=== PATIENT | female | born 1965 | race Caucasian/White ===

== ENCOUNTER 2019-08-26 10:07 | Observation (INO) | payer OTHER, SELFPAY ==
[2019-08-26] VITALS (11 sets, daily range): BP systolic 113–143; BP diastolic 72–90; PULSE 66–109; RESP 16–18; TEMP 35.8–37.1; O2SAT 94–99; BMI 30.9
--- NOTE | ~2019-08-26 | US_ITS ---
EXAMINATION: US abdomen limited DATE: 08/27/2019 16:50 INDICATION: Abnormal liver function tests. TECHNIQUE: Multiple grayscale and Doppler ultrasound images of the abdomen were obtained. COMPARISON: None FINDINGS: The visualized portions of the head and body of the pancreas are normal. There is diffuse h epatic steatosis with areas of focal sparing at the hilum. There is normal flow in main portal vein. The gallbladder is absent. The common duct is normal and measures 6 mm. IMPRESSION: 1. Diffuse hepatic steatosis. Reviewed, dictated and finalized at location A. RVISOR SHEARING
--- NOTE | ~2019-08-26 | XR_ITS ---
EXAMINATION: XR chest 1V portable DATE: 08/26/2019 10:47 INDICATION: Left chest pain. TECHNIQUE: A single frontal view of the chest was obtained. COMPARISON: Chest 2 views 08/25/2018 FINDINGS: There are lucencies in the upper lungs, consistent with emphysema. The chest demonstrates c lear lungs without pneumonia, pleural effusion, or pneumothorax. The heart size is normal. IMPRESSION: 1. Emphysema. Reviewed, dictated and finalized at location A. GE POSTER IMPRESSION: 1. Emphysema.
--- NOTE | ~2019-08-26 | CT_ITS ---
EXAMINATION: CT BRAIN W/O DATE: 08/27/2019 11:29 INDICATION: Vertigo. Dizziness. TECHNIQUE: Computed tomography (CT) of the head was performed without and with 100 cc Omnipaque 350 i ntravenous contrast. The dose-length product was 1210.67 mGy-cm. The mA was adjusted according to pat ient size. Iterative reconstruction technique was employed. COMPARISON: No prior studies for comparison. FINDINGS: Normal brain parenchymal volume for age. Normal carlos-white differentiation. No acute intrac ranial hemorrhage, infarction, mass or mass effect. No ventriculomegaly or midline shift. Midline sagittal images demonstrate a normal corpus callosum, c raniovertebral junction and sella turcica. Basilar cisterns are patent. Paranasal sinuses and mastoids are pneumatized. No depressed skull fractures. IMPRESSION: 1. No acute intracranial abnormality. Reviewed, dictated and finalized at location B. TECH
--- NOTE | 2019-08-26 10:29 | ECG_ITS ---
Measurements Intervals [place] Rate: 72 P: 62 MT: 130 QRS: 72 QRSD: 89 T: 79 QT: 402 QTc: 440 Interpretive Statements SINUS RHYTHM DELAYED PRECORDIAL R/S TRANSITION BASELINE ARTIFACT- I, II, III, AVL, AVF, V2 BORDERLINE ECG Electronically Signed On 08-26-2019 10:50:26 SENIOR ACCOUNTING MANAGER by Kalin Moore D.O.
--- NOTE | 2019-08-26 10:43 | PC.NURSE ---
report given to Kedar Koch RN
[2019-08-26 10:52] LABS: Basophils Absolute Auto 0.03 K/mm3 (0.00-0.10); Basophils Percent Auto 0.4 % (0.0-1.0); Eosinophils Absolute Auto 0.24 K/mm3 (0.02-0.50); Eosinophils Percent Auto 3.1 % (1.0-6.0); Hematocrit 48.7 % (35.0-49.0); Immature Granulocyte Absolute 0.05 K/mm3 (0.00-0.00); Immature Granulocyte Percent A 0.6 % (0.0-0.0); Lymphocytes Absolute Auto 2.36 K/mm3 (1.10-4.50); Lymphocytes Percent Auto 30.6 % (18.0-42.0); Mean Corpuscular HGB Conc 34.9 g/dL (32.0-36.0); Mean Corpuscular Hemoglobin 31.7 pg (27.0-31.0); Mean Corpuscular Volume 90.9 fL (78.0-102.0); Mean Platelet Volume 10.1 fl (9.2-11.8); Monocytes Absolute Auto 0.63 K/mm3 (0.10-0.90); Monocytes Percent Auto 8.2 % (2.0-11.0); Neutrophils Absolute Auto 4.4 K/mm3 (1.7-7.2); Neutrophils Percent Auto 57.1 % (50.0-70.0); Platelet Count Result 255 K/mm3 (150-420); Red Blood Count 5.36 M/mm3 (4.20-5.40); Red Cell Distribution Width 12.9 % (11.6-14.4); White Blood Count 7.7 K/mm3 (4.8-10.8)
[2019-08-26] MEDS: ONDANSETRON INJ 4 MG/2 ML VIAL IV PUSH ×2 (10:53→23:56)
[2019-08-26] MEDS: PANTOPRAZOLE SODIUM IV 40 MG VIAL IV PUSH ×2 (10:56→15:22)
--- NOTE | 2019-08-26 10:59 | PC.NURSE ---
PT CARE IS ASSUMED AT THIS TIME. PT STATES SHE HAS BRONCHITIS AND ACID REFLUX. WILL AWAIT RESULTS. PT WELL APPEARING AT THIS TIME.
[2019-08-26 11:10] LABS: Alanine Aminotransferase 81 U/L (14-59); Albumin Level 4.4 g/dL (3.4-5.0); Alkaline Phosphatase 122 U/L (46-116); Anion Gap 17.2 mmol/L (7-16); Aspartate Amino Transferase 38 U/L (15-37); Bilirubin,Total 0.4 mg/dL (0.00-1.00); Blood Urea Nitrogen 15 mg/dL (7-18); Calcium 9.4 mg/dL (8.5-10.1); Carbon Dioxide 23 mmol/L (21-32); Chloride 105 mmol/L (98-108); Estimated CRCL calculation 68 ml/min; Estimated Glomerular Filt Rate > 60; Glucose 101 mg/dL (70-99); Osmolality Calculated 292 mOsm/kg (285-295); Potassium 4.2 mmol/L (3.5-5.1); Sodium 141 mmol/L (136-145); Total Protein 7.8 g/dL (6.4-8.2)
[2019-08-26 11:11] LABS: Troponin I < 0.02 ng/mL (0.00-0.056)
[2019-08-26 11:23] LABS: Influenza Control Valid (Valid)
--- NOTE | 2019-08-26 11:33 | ED.CHESTPAIN ---
HPI - Chest Pain General Chief Complaint: Chest Pain Stated Complaint: Chest Pains Source: patient Mode of arrival: ambulatory History of Present Illness HPI narrative: 54 y.o. awoken at 5 AM with spinning causing it her hold on to her . This lasted about 2 minutes. About 5 minutes later she had trouble walking, was being assisted by her , when she developed a deep, intense, sharp #8/10 pain in her left chest associated with difficulty getter her breath. This lasted about 90 - 120 seconds. At that time she developed intense itching in her left palm (which lasted about 90 minutes) and fatigue - which persists. She denies shoulder, neck, arm pain. She denies diaphoresis. She has had popping but not ringing in her ears in the last few days. At 8:30 AM she again had an episode of left chest pain, this time dull, ~4/10. She has had minor SOB off and on this AM. She remains lightheaded with fatigue and nausea. When she changes position her vertigo returns for a few seconds. Not long after being checked into her room she developed misternal burning, burping, nausea and dry heaves, symptoms experienced when she has reflux. Symptoms resolved after ~ 15 minutes. She has hyperlipidemia, a strong family hx. of MIs and is a longtime smoker. She's worried about these being heart related symptoms. Four days ago she developed a sore throat, rhinorrhea, tactile fever and cough. All of these symptoms have improved but persist. Related Data Home Medications Medication Instructions Recorded Confirmed atorvastatin 20 mg PO DAILY 08/26/19 08/26/19 gabapentin 100 mg PO BID 08/26/19 08/26/19 Allergies Allergy/AdvReac Type Severity Reaction Status Date / Time No Known Allergies Allergy Unverified 02/16/19 14:07 Review of Systems Constitutional: Constitutional: Reports as per HPI, Reports no additional constitutional complaints and Denies fever(s) Eyes: Eyes: Denies change in vision ENT: Reports system reviewed and no additional complaints, except as documented Cardiovascular: Cardiovascular: Reports no additional cardiovascular complaints Respiratory: Respiratory: Reports no additional respiratory complaints, Denies cough and Denies wheezing Gastrointestinal: Gastrointestinal: Denies abdominal pain and Denies diarrhea Genitourinary: Genitourinary: Denies dysuria Musculoskeletal: Musculoskeletal: Reports no additional musculoskeletal complaints Integumentary/Breasts: Skin/Breast: Denies rash Neurologic: Denies syncope, Denies headache(s), Denies focal weakness and Denies numbness Psychiatric: Psychiatric: Denies anxiety and Denies depression Endocrine: Endocrine: Denies polyuria Hematologic/Lymphatic: Hematologic/Lymphatic: Denies easy bleeding Allergic/Immunologic: Allergic/Immunologic: Denies lip swelling PMFSH Past Medical History Medical History (Updated 08/26/19 @ 14:23 by Kin Sosa MD) GERD (gastroesophageal reflux disease) Hyperlipidemia Surgical History Surgical History (Updated 08/26/19 @ 13:36 by Kin Sosa MD) History of appendectomy Hx of cholecystectomy Hx of tubal ligation Family History Family History (Updated 08/26/19 @ 13:38 by Kin Sosa MD) Mother Myocardial infarct at 55 y.o. Sibling Heart disease Social History Social History (Updated 08/26/19 @ 13:39 by Kin Sosa MD) Smoking packs per day: 1 Smoking cigarettes per day: 20.0 Years smoked: 40 Smoking pack-years: 40.00 Smoking status: Current every day smoker Tobacco type: cigarettes Second hand tobacco smoke exposure: Yes Alcohol intake: current Drinks per week: 4 Substance use type: does not use Living arrangements: with family Gender identity (if verbalized by the patient): Female Spiritual care concerns: No Agree to blood products: Yes Exam Narrative: Exam Narrative: Sitting up in bed. Looks like she doesn't feel well.
--- NOTE | 2019-08-26 12:19 | PC.NURSE ---
ERP TAKES NASAL CANNULA OFF, PT SLEEPS, SPO2 FALLS TO 87%, ONCE AWAKE, SPO2 CLIMBS TO 96% - PT STATES SHE HAD BRONCHITIS ONCE LAST YEAR BUT HAS NEVER BEEN TOLD THAT SHE HAS COPD OR EMPHYSEMA
[2019-08-26] MEDS: PROMETHAZINE HCL 25 MG TABLET PO (13:08)
[2019-08-26] MEDS: ASPIRIN 81 MG CHEWABLE TABLET 324 MG PO (13:09)
[2019-08-26 14:13] LABS: Magnesium 2.2 mg/dL (1.8-2.4)
[2019-08-26] MEDS: ENOXAPARIN 40 MG/0.4 ML SYRINGE SUB-Q (15:22)
[2019-08-26] MEDS: NICOTINE (*PBKC) 21 MG PATCH 1 PATCH TRANSDERM (15:22)
--- NOTE | 2019-08-26 16:09 | PM.IMHP ---
H&P: HPI History of Present Illness Chief complaint: Chest Pains <ARCELIA Ayala - Last Filed: 08/26/19 16:40> Narrative: Lilly Dillard is a 54 year old female that presented to the ED today complaining of dizziness and chest pain. Patient has a past medical history GERD and hyperlipidemia. She is being admitted for vertigo and chest pain. According to patient she woke up at 5:00 a.m. this morning with dizziness patient noted that she had vertigo and it felt as if the was upside down. Shortly after she started experiencing chest pains the last 1-2 minutes she describes the chest pains as a sharp pains on the right side of her chest. She does have an extensive family history [place] this is why the chest pains alarmed her. She also noted that at that time she took 1 aspirin and laid down to rest. 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 she also noted she had an uncontrollable itch to her left hand, shortness of breath, fatigue . she also noted that her left hand was numb with tingling. While she was in the ED she did have some nausea with dry hives. While she was in the ED a x-ray was completed which indicated emphysema troponin was negative, EKG sinus rhythm with a heart rate is 72. Vital Signs 143/86, 66, 16, 35.8, 98% on room air. patient's liver enzymes were slightly elevated . Patient denies SOB, CP, palpitation, extremity numbness, , constipation, diarrhea, or chills or fever. she continues to complain of lightheadedness and dizziness she is not experiencing any chest pains at this time. <ARCELIA Ayala - Last Filed: 08/26/19 16:40> Review of Systems Constitutional: Constitutional: Denies body ache(s), Denies chills, Reports fatigue, Denies fever(s) and Denies headache(s) <ARCELIA Ayala - Last Filed: 08/26/19 16:40> ENT: Reports vertigo, Reports dizziness, Denies headache(s) and Denies sore throat <ARCELIA Ayala - Last Filed: 08/26/19 16:40> Cardiovascular: Cardiovascular: Reports chest pain at rest, Reports chest pain with activity and Reports dyspnea <ARCELIA Ayala - Last Filed: 08/26/19 16:40> Respiratory: Respiratory: Denies chest congestion, Denies cough, Reports dyspnea and Denies wheezing <ARCELIA Ayala - Last Filed: 08/26/19 16:40> Gastrointestinal: Gastrointestinal: Denies constipation, Reports heartburn, Denies diarrhea, Reports nausea and Reports vomiting <ARCELIA Ayala - Last Filed: 08/26/19 16:40> Genitourinary: Genitourinary: Reports no additional female genitourinary complaints <ARCELIA Ayala - Last Filed: 08/26/19 16:40> Musculoskeletal: Musculoskeletal: Reports no additional musculoskeletal complaints <ARCELIA Ayala - Last Filed: 08/26/19 16:40> Integumentary/Breasts: Skin/Breast: Reports system reviewed and no additional complaints, except as docu <ARCELIA Ayala - Last Filed: 08/26/19 16:40> Neurologic: Denies confusion, Reports vertigo, Reports dizziness, Denies syncope, Reports lack of coordination, Denies loss of vision, Reports tingling ( left hand) and Reports disequilibrium <ARCELIA Ayala - Last Filed: 08/26/19 16:40> Psychiatric: Psychiatric: Reports no additional psychiatric complaints <ARCELIA Ayala - Last Filed: 08/26/19 16:40> [facility] Past Medical History Medical History: Medical History (Updated 08/26/19 @ 16:29 by ARCELIA Ayala) GERD (gastroesophageal reflux disease) Hyperlipidemia <ARCELIA Ayala - Last Filed: 08/26/19 16:40> Surgical History Surgical History: Surgical History (Updated 08/26/19 @ 13:36 by Kin Sosa MD) History of appendectomy Hx of cholecystectomy Hx of tubal ligation <ARCELIA Ayala - Last Filed: 08/26/19 16:40> Family History Family History: Family History (Updated 08/25
[2019-08-26 17:48] LABS: Troponin I < 0.02 ng/mL (0.00-0.056)
--- NOTE | 2019-08-26 17:54 | ECG_ITS ---
Measurements Intervals [place] Rate: 82 P: 45 [place]: 128 QRS: 41 QRSD: 86 T: 69 QT: 384 QTc: 450 Interpretive Statements SINUS RHYTHM NORMAL ECG Electronically Signed On 08-27-2019 7:05:32 EROSION CONTROL COORDINATOR by Kalin Moore D.O.
[2019-08-26] MEDS: IPRATROPIUM 0.5 MG/ALBUTEROL SULFATE 2.5 MG AMPUL.NEB 3 ML INHALATION ×2 (17:55→23:55)
--- NOTE | 2019-08-26 23:54 | ECG_ITS ---
Measurements Intervals [place] Rate: 72 P: 57 [place]: 122 QRS: 56 QRSD: 84 T: 74 QT: 392 QTc: 431 Interpretive Statements SINUS RHYTHM BASELINE ARTIFACT- I, III, AVL NORMAL ECG Electronically Signed On 08-27-2019 7:05:22 CMA by Kalin Moore D.O.
[2019-08-27] VITALS (20 sets, daily range): BP systolic 97–142; BP diastolic 54–76; PULSE 72–108; RESP 18–22; TEMP 36.1–36.7; O2SAT 86–99
[2019-08-27 00:09] LABS: Troponin I < 0.02 ng/mL (0.00-0.056)
--- NOTE | 2019-08-27 00:32 | PC.NURSE ---
0059 EKG done on patient as ordered.
[2019-08-27] MEDS: ACETAMINOPHEN 500 MG TABLET 1000 MG PO ×2 (05:08→11:46)
[2019-08-27] MEDS: IPRATROPIUM 0.5 MG/ALBUTEROL SULFATE 2.5 MG AMPUL.NEB 3 ML INHALATION ×3 (05:52→18:52)
[2019-08-27 06:15] LABS: Alanine Aminotransferase 64 U/L (14-59); Albumin Level 3.8 g/dL (3.4-5.0); Alkaline Phosphatase 108 U/L (46-116); Aspartate Amino Transferase 24 U/L (15-37); Bilirubin Direct 0.1 mg/dL (0-0.2); Bilirubin,Total 0.3 mg/dL (0.00-1.00); Ferritin 192 ng/mL (8-252); Iron 73 ug/dL (50-170); Percent Iron Saturation 26 % (12-57); Total Protein 6.5 g/dL (6.4-8.2)
[2019-08-27 06:16] LABS: CRP < 0.2 mg/dL (0.0-0.9)
[2019-08-27 06:36] LABS: Thyroid Stimulating Hormone Reflex 2.93 u/IU/mL (0.36-3.74); Troponin I < 0.02 ng/mL (0.00-0.056)
[2019-08-27 06:40] LABS: Erythrocyte Sedimentation Rate 8 mm/hr (0-20)
[2019-08-27] MEDS: ENOXAPARIN 40 MG/0.4 ML SYRINGE SUB-Q (08:48)
[2019-08-27] MEDS: GABAPENTIN 100 MG CAPSULE PO ×2 (08:48→16:47)
[2019-08-27] MEDS: ATORVASTATIN 10 MG TABLET 20 MG PO (08:48)
--- NOTE | 2019-08-27 11:07 | PC.NURSE ---
Patient off floor to radiology
--- NOTE | 2019-08-27 11:31 | PC.NURSE ---
Patient returned to floor from radiology
[2019-08-27 13:12] LABS: Mean Corpuscular HGB Conc 33.3 g/dL (32.0-36.0); Mean Corpuscular Hemoglobin 31.6 pg (27.0-31.0); Mean Corpuscular Volume 94.7 fL (78.0-102.0); Mean Platelet Volume 10.8 fl (9.2-11.8); Platelet Count Result 227 K/mm3 (150-420); Red Blood Count 5.07 M/mm3 (4.20-5.40); Red Cell Distribution Width 13.2 % (11.6-14.4); White Blood Count 6.7 K/mm3 (4.8-10.8)
--- NOTE | 2019-08-27 13:21 | HOMEO2EVAL ---
Home Oxygen Evaluation RC: Home Oxygen (O2) Evaluation Start: 08/27/19 13:14 Freq: Status: Active Protocol: RPE Activity Type Activity Date Activity User E-Sign Co-Sign Detail Recorded Client Recorded Date Recorded By Document 08/27/19 12:40 NINO [id number] 08/27/19 13:17 NINO Document 08/27/19 12:42 NINO [id number] 08/27/19 13:17 NINO Document 08/27/19 12:45 NINO [id number] 08/27/19 13:21 NINO Document 08/27/19 12:46 NINO [id number] 08/27/19 13:21 NINO 08/27/19 08/27/19 08/27/19 12:40 12:42 12:45 Home O2 Evaluation Test Phase Resting Exercise Exercise Oxygen Delivery Room Air Room Air Nasal Cannula Oxygen Flow Rate (L/min) 1 Pulse Oximetry (90-100 %) 91 86 L 87 L Pulse Rate (60-100 beats/min) 102 H 108 H 102 H Activity Tolerance Excellent Excellent Rating of Perceived Dyspnea (PD) +2 Mild, Some +2 Mild, Some Difficulty, Difficulty, Noticeable to Noticeable to the Observer the Observer Rate of Perceived Exertion (PE) 11 Fairly light 12 Ambulation Distance (feet) 25 10 Home Oxygen Evaluation Comments Pt. walked desaturation to pushing w/c 87% while on room air 02 @ 1 lpm. desaturation to will increase 86% after 25 o2 to 2 lpm feet. Oxygen will be applied at 1 lpm. Treatment Charges O2 Evaluation 08/27/19 12:46 Home O2 Evaluation Test Phase Exercise Oxygen Delivery Nasal Cannula Oxygen Flow Rate (L/min) 2 Pulse Oximetry (90-100 %) 93 Pulse Rate (60-100 beats/min) 107 H Activity Tolerance Excellent Rating of Perceived Dyspnea (PD) +2 Mild, Some Difficulty, Noticeable to the Observer Rate of Perceived Exertion (PE) 11 Fairly light Ambulation Distance (feet) 375 Home Oxygen Evaluation Comments 2 lpm O2 required to maintain Sp02> 90% during exertion. Treatment Charges
[2019-08-27] MEDS: PANTOPRAZOLE SODIUM IV 40 MG VIAL IV PUSH (14:38)
[2019-08-27] MEDS: SODIUM CHLORIDE 0.9% IV 1,000 ML 999 ML IV CONT (14:38)
[2019-08-27] MEDS: ASPIRIN 81 MG CHEWABLE TABLET 324 MG PO (14:39)
[2019-08-27] MEDS: NICOTINE (*PBKC) 21 MG PATCH 1 PATCH TRANSDERM (14:39)
[2019-08-27] MEDS: TRAMADOL HCL 50 MG TABLET PO (14:40)
[2019-08-27] MEDS: BENZONATATE 100 MG CAPSULE 200 MG PO (16:46)
--- NOTE | 2019-08-27 17:27 | PM.IMPN ---
Progress Note: A&P Assessment and Plan (1) Chest pain: Qualifiers: Chest pain type: unspecified Qualified Code(s): R07.9 - Chest pain, unspecified <Mey Branch NP - Last Filed: 08/27/19 17:48> Code(s): R07.9 - Chest pain, unspecified <Mey Branch NP - Last Filed: 08/27/19 17:48> Status: Acute <Mey Branch NP - Last Filed: 08/27/19 17:48> Assessment and Plan: not believed to be cardiac related MOST likely Pleurisy. Chest pain was lateral left side, located at lower rib/bra line and resolved. Pain worsened only with inspiration and did not allow her to take a deep breath in. Did not change with position. Chest pain resolved and has not returned overnight or today. possibly secondary to acid reflux Continued daily Protonix and p.r.n. Tums; continued daily Pepcid. continue telemetry troponins negative EKG sinus rhythm chest x-ray indicates emphysema will continue to monitor currently no CP, no SOB, no numbness or tingling. <Mey Branch NP - Last Filed: 08/27/19 17:48> (2) Vertigo: Code(s): R42 - Dizziness and giddiness <Mey Branch NP - Last Filed: 08/27/19 17:48> Status: Acute <Mey Branch NP - Last Filed: 08/27/19 17:48> Assessment and Plan: possibly secondary to BPPV versus orthostatic hypotension versus DEHYDRATION CT of the brain without acute concerns continue orthostatic blood pressures continue IV hydration PRN with boluses and oral hydration monitor electrolytes, checking Mag and Phos CBC in a.m. BMP in a.m. continue monitoring and evaluation advisor <Mey Branch NP - Last Filed: 08/27/19 17:48> (3) GERD (gastroesophageal reflux disease): Qualifiers: Esophagitis presence: without esophagitis Qualified Code(s): K21.9 - Gastro-esophageal reflux disease without esophagitis <Mey Branch NP - Last Filed: 08/27/19 17:48> Code(s): K21.9 - Gastro-esophageal reflux disease without esophagitis <Mey Branch NP - Last Filed: 08/27/19 17:48> Status: Acute <Mey Branch NP - Last Filed: 08/27/19 17:48> Assessment and Plan: continue Protonix p.r.n. Tums possibly secondary to acid reflux Continued daily Protonix and p.r.n. Tums; continued daily Pepcid. continue telemetry <Mey Branch NP - Last Filed: 08/27/19 17:48> (4) Hyperlipidemia: Code(s): E78.5 - Hyperlipidemia, unspecified <Mey Branch NP - Last Filed: 08/27/19 17:48> Status: Acute <Mey Branch NP - Last Filed: 08/27/19 17:48> Assessment and Plan: continue statin <Mey Branch NP - Last Filed: 08/27/19 17:48> (5) DVT prophylaxis: Code(s): Z29.9 - Encounter for prophylactic measures, unspecified <Mey Branch NP - Last Filed: 08/27/19 17:48> Status: Acute <Mey Branch NP - Last Filed: 08/27/19 17:48> Assessment and Plan: started Lovenox continued encouraged improved hydration at risk for DVTs with hyperconcentrated blood and immobility <Mey Branch NP - Last Filed: 08/27/19 17:48> (6) Elevated liver enzymes: Code(s): R74.8 - Abnormal levels of other serum enzymes <Mey Branch NP - Last Filed: 08/27/19 17:48> Status: Acute <Mey Branch NP - Last Filed: 08/27/19 17:48> Assessment and Plan: liver enzymes slightly elevated at admission, already improved. ultrasound pending liver workup pending Hepatitis panel ordered at admission. avoid hepatotoxic agents <Mey Branch NP - Last Filed: 08/27/19 17:48> (7) Dehydration: Code(s): E86.0 - Dehydration <Mey Branch NP - Last Filed: 08/27/19 17:48> Status: Acute <Mey Branch NP - Last Filed: 08/27/19 17:48> Assessment and Plan: Tachycardia with hyperconcentrated/elevated CBC results with headache with significant vertigo on position changes o
[2019-08-27] MEDS: SALMET XINAFT/FLUTIC PROPIN 250 MCG/50 MCG INH CAP 1 PUFF INHALATION (18:50)
[2019-08-27] MEDS: methylPREDNISolone SOD SUCC 125 MG VIAL 60 MG IV PUSH (18:52)
[2019-08-28] VITALS (11 sets, daily range): BP systolic 114–125; BP diastolic 72–79; PULSE 78–130; RESP 16–20; TEMP 36.3; O2SAT 96
[2019-08-28] MEDS: IPRATROPIUM 0.5 MG/ALBUTEROL SULFATE 2.5 MG AMPUL.NEB 3 ML INHALATION ×3 (00:35→12:30)
--- NOTE | 2019-08-28 00:38 | PC.NURSE ---
pt up to bathroom, reports that solumedrol has made her jittery. gait slow and steady. voinding without difficulty, clear yellow urine.
[2019-08-28] MEDS: ACETAMINOPHEN 500 MG TABLET 1000 MG PO (02:34)
[2019-08-28 05:27] LABS: Hematocrit 43.2 % (35.0-49.0); Hemoglobin 14.5 g/dL (12.0-15.0); Mean Corpuscular HGB Conc 33.6 g/dL (32.0-36.0); Mean Corpuscular Hemoglobin 31.1 pg (27.0-31.0); Mean Corpuscular Volume 92.7 fL (78.0-102.0); Mean Platelet Volume 10.5 fl (9.2-11.8); Platelet Count Result 238 K/mm3 (150-420); Red Blood Count 4.66 M/mm3 (4.20-5.40); White Blood Count 11.5 K/mm3 (4.8-10.8)
[2019-08-28 05:41] LABS: Alanine Aminotransferase 64 U/L (14-59); Albumin Level 3.7 g/dL (3.4-5.0); Alkaline Phosphatase 101 U/L (46-116); Anion Gap 16.3 mmol/L (7-16); Aspartate Amino Transferase 25 U/L (15-37); Bilirubin,Total 0.3 mg/dL (0.00-1.00); Blood Urea Nitrogen 14 mg/dL (7-18); Carbon Dioxide 23 mmol/L (21-32); Chloride 106 mmol/L (98-108); Estimated CRCL calculation 54 ml/min; Estimated Glomerular Filt Rate > 60; Glucose 203 mg/dL (70-99); Magnesium 1.7 mg/dL (1.8-2.4); Osmolality Calculated 298 mOsm/kg (285-295); Phosphorus 3.1 mg/dL (2.6-4.7); Potassium 4.3 mmol/L (3.5-5.1); Sodium 141 mmol/L (136-145); Total Protein 6.5 g/dL (6.4-8.2)
[2019-08-28] MEDS: SALMET XINAFT/FLUTIC PROPIN 250 MCG/50 MCG INH CAP 1 PUFF INHALATION (06:01)
--- NOTE | 2019-08-28 06:09 | PC.NURSE ---
pt reports that she needs another IV bolus due to having a dizzy spell while rolling over. Charge nurse aware.
--- NOTE | 2019-08-28 06:50 | PC.NURSE ---
0615 Dr. Luke here to see and examine pt.
--- NOTE | 2019-08-28 07:30 | PC.NURSE ---
contnues to have dizzyness with position change in bed, to start meclizine today, no chest pain unless has a deep cough, no pain at this time,
--- NOTE | 2019-08-28 08:30 | PC.NURSE ---
Sitting up, no nausea, slight dizzyness to turn head, antivert given
[2019-08-28] MEDS: methylPREDNISolone SOD SUCC 40 MG VIAL IV PUSH (08:36)
[2019-08-28] MEDS: PANTOPRAZOLE SODIUM IV 40 MG VIAL IV PUSH (08:36)
[2019-08-28] MEDS: FAMOTIDINE 20 MG/ISO 50 ML 20 MG/50 ML BAG 100 MG IVPB (08:36)
[2019-08-28] MEDS: ENOXAPARIN 40 MG/0.4 ML SYRINGE SUB-Q (08:36)
[2019-08-28] MEDS: ATORVASTATIN 10 MG TABLET 20 MG PO (08:37)
[2019-08-28] MEDS: BENZONATATE 100 MG CAPSULE 200 MG PO ×2 (08:37→13:12)
[2019-08-28] MEDS: MECLIZINE HCL 12.5 MG TABLET PO ×2 (08:38→13:11)
[2019-08-28] MEDS: GABAPENTIN 100 MG CAPSULE PO (08:38)
--- NOTE | 2019-08-28 09:41 | PC.NURSE ---
in chair no dizzyness at this time, talking on phone
--- NOTE | 2019-08-28 10:45 | PC.NURSE ---
up in room, did own sponge bath, no chest pain, no sob
--- NOTE | 2019-08-28 11:30 | PC.NURSE ---
No distress, no pain, no dizzyness voiced at this time
[2019-08-28] MEDS: NICOTINE (*PBKC) 21 MG PATCH 1 PATCH TRANSDERM (12:23)
--- NOTE | 2019-08-28 12:27 | PC.NURSE ---
Nicotine patch applied early, states other one fell off this am when cleaning up
[2019-08-28] MEDS: ASPIRIN 81 MG CHEWABLE TABLET 324 MG PO (13:11)
--- NOTE | 2019-08-28 13:30 | PC.NURSE ---
Up ad arianna in room, no dizyness no chest pain
[2019-08-28] MEDS: MAGNESIUM SULF 2 GM/WATER 50ML 2 GM/50 ML BAG IVPB (13:47)
--- NOTE | 2019-08-28 14:03 | PC.NURSE ---
Magnesium infusing, no ches tpain, site clear, no change noted in heart rate at this time
[2019-08-28 14:10] LABS: Cholesterol 197 mg/dL (0-200); HDL Direct 40 mg/dL (40-60); LDL Cholesterol Calculated 146 mg/dL (<130); Triglycerides 55 mg/dL (0-150)
[2019-08-28 14:21] LABS: Hemoglobin A1C 5.8 % (<5.7)
--- NOTE | 2019-08-28 14:37 | ECG_ITS ---
Measurements Intervals [place] Rate: 121 P: 70 [place]: 138 QRS: 65 QRSD: 87 T: 72 QT: 313 QTc: 446 Interpretive Statements SINUS TACHYCARDIA ABNORMAL ECG Electronically Signed On 08-29-2019 7:07:35 COMMERCIAL MANAGER by Kalin Moore D.O.
--- NOTE | 2019-08-28 15:26 | PC.NURSE ---
ana maría putting d/c orders in, tele off, pt up getting dressed
--- NOTE | 2019-08-28 15:28 | PM.DS ---
DS: Diagnosis Admitting Diagnosis Admitting Diagnosis: Chest pain, unspecified <Mey Branch NP - Last Filed: 08/28/19 16:33> Discharge Diagnosis (1) Chest pain: Qualifiers: Chest pain type: unspecified Qualified Code(s): R07.9 - Chest pain, unspecified <Mey Branch NP - Last Filed: 08/28/19 16:33> Code(s): R07.9 - Chest pain, unspecified <Mey Branch NP - Last Filed: 08/28/19 16:33> Status: Acute <Mey Branch NP - Last Filed: 08/28/19 16:33> Assessment and Plan: not believed to be cardiac related No chest pain today. No SOB, No dyspnea when walking entire 2nd floor of hospital x 2, no tingling or numbness of shoulders or arms or hands. Atypical chest pain, resolved quickly, Troponin x 4 negative. MOST likely Pleurisy. Chest pain was lateral left side, located at lower rib/bra line and resolved. Pain worsened only with inspiration and did not allow her to take a deep breath in. Did not change with position. Chest pain resolved and has not returned overnight or today. possibly secondary to acid reflux ; possibly related to COPD/smoking hx. Continued daily Protonix and p.r.n. Tums; continued daily Pepcid. continue telemetry shows no concerning ectopy troponins negative EKG sinus rhythm, repeated EKG today, Sinus again. chest x-ray indicates emphysema will continue to monitor currently no CP, no SOB, no numbness or tingling. Sinus Tachycardia due to dehydration, Duonebs, IV steroids, and Nicotine withdrawal <Mey Branch NP - Last Filed: 08/28/19 16:33> (2) Vertigo: Code(s): R42 - Dizziness and giddiness <Mey Branch NP - Last Filed: 08/28/19 16:33> Status: Acute <Mey Branch NP - Last Filed: 08/28/19 16:33> Assessment and Plan: secondary to BPPV versus orthostatic hypotension versus DEHYDRATION CT of the brain without acute concerns called Dr. Mc today and had him review the CT scan of head to see if any possible causes for Vertigo or severe Dizziness that she is having - no cause found on radiology study. examined her TM and ears. she resports an itchy outer ear canal - recommended triamcinolone cream PRN to treat that orthostatic blood pressures - stable. received 1L IVFs yesterday continued encouraging oral hydration, had 4 L in and voided 4 L out. monitor electrolytes, checking Mag and Phos, replenished Mag, started on daily oral mag at discharge. environmental monitoring specialist without concerns Tachycardia due to dehydration, Duonebs, IV steroids, and Nicotine withdrawal <Mey Branch NP - Last Filed: 08/28/19 16:33> (3) GERD (gastroesophageal reflux disease): Qualifiers: Esophagitis presence: without esophagitis Qualified Code(s): K21.9 - Gastro-esophageal reflux disease without esophagitis <Mey Branch NP - Last Filed: 08/28/19 16:33> Code(s): K21.9 - Gastro-esophageal reflux disease without esophagitis <Mey Branch NP - Last Filed: 08/28/19 16:33> Status: Acute <Mey Branch NP - Last Filed: 08/28/19 16:33> Assessment and Plan: RESOLVED continue Protonix p.r.n. Tums possibly secondary to acid reflux Continued daily Protonix and p.r.n. Tums; continued daily Pepcid. continue telemetry <Mey Branch NP - Last Filed: 08/28/19 16:33> (4) Hyperlipidemia: Code(s): E78.5 - Hyperlipidemia, unspecified <Mey Branch NP - Last Filed: 08/28/19 16:33> Status: Acute <Mey Branch NP - Last Filed: 08/28/19 16:33> Assessment and Plan: continue statin checked lipid panel found to be near normal continued current statin dose educated patient regarding diet changes and increasing exercise to improve. stated that her dietary weakness was Carbs <Mey Branch NP - Last Filed: 08/28/19 16:33> (5) DVT prophylaxis: Code(s): Z29.9 - Encounter for prophylactic measures, unspecified
--- NOTE | 2019-08-29 13:04 | PC.NURSE ---
08/28/2019 1600 Noted Pepcid 20 mg IVPB administered over 20 minutes. Started 1600 and Stopped at 1620.
[2019-08-31 00:06] LABS: Hepatitis B Core Antibody Nonreactive (Nonreactive); Hepatitis B Surface Antibody Nonreactive (Nonreactive); Hepatitis C Signal to Cutoff 0.01 ratio (<1.00); Hepatitis C Virus Antibody Nonreactive (Nonreactive)
[2019-09-01 17:31] LABS: Ceruloplasmin 23 mg/dL (18-53)
== END 2019-08-28 15:50 | disposition home or self-care (01) ==
LOC: CHSED 11:13 → CHS2ND 13:17
PROVIDERS: Nurse Practitioner; Admitting Provider Family Medicine; Emergency Provider Family Medicine; PCP Physician Assistant; Visit Provider Family Medicine
DX: R07.89 Other chest pain (principal); R42 Dizziness and giddiness; E86.0 Dehydration; K21.9 Gastro-esophageal reflux disease without esophagitis; E78.5 Hyperlipidemia, unspecified; J43.9 Emphysema, unspecified; R74.8 Abnormal levels of other serum enzymes; L29.9 Pruritus, unspecified; F17.210 Nicotine dependence, cigarettes, uncomplicated; K76.0 Fatty (change of) liver, not elsewhere classified
CPT/HCPCS: 36415; 70470; 71045; 76705; 80053; 80061; 80076; 82103; 82390; 82728; 83036; 83540; 83550; 83735; 84100; 84443; 84484; 85025; 85027; 85652; 86038; 86140; 86706; 87804; 93005; 94618; 94640; 96361; 96365; 96367; 96372; 96374; 96375; 96376; 97161; 99285; A9270; C9113; G0378; G0379; J1650; J2405; J2920; J2930; J3475; J7030; Q9965

== ENCOUNTER 2020-12-22 13:08 | Outpatient (CLI) | payer OTHER, SELFPAY ==
[2020-12-22 13:58] LABS: SARS-CoV-2 Ag Negative (Negative)
== END 2020-12-22 13:09 | disposition home or self-care (01) ==
LOC: CHSLAB 13:12
PROVIDERS: PCP Physician Assistant; Visit Provider Physician Assistant
DX: B34.9 Viral infection, unspecified (principal); Z20.822 Contact with and (suspected) exposure to COVID-19
CPT/HCPCS: 87426; C9803

== ENCOUNTER 2021-06-10 12:43 | Outpatient (CLI) | payer OTHER, SELFPAY ==
[2021-06-10 14:16] LABS: SARS-CoV-2 RNA PCR Negative (Negative)
== END 2021-06-10 12:44 | disposition home or self-care (01) ==
LOC: CHSLAB 12:45
PROVIDERS: PCP Physician Assistant; Visit Provider Physician Assistant
DX: Z20.822 Contact with and (suspected) exposure to COVID-19 (principal)
CPT/HCPCS: C9803; U0003; U0005

== ENCOUNTER 2022-11-27 12:35 | Emergency (ER) | payer OTHER, SELFPAY ==
[2022-11-27 12:40] VITALS: BP 150/95; PULSE 79; RESP 16; TEMP 36.9; O2SAT 97
--- NOTE | 2022-11-27 12:44 | ED.SKABFB ---
HPI - Skin/Abscess/Foreign Bdy General Chief complaint: Skin/Abscess/Foreign Body Stated complaint: eyes/left shoulder bite Time Seen by Provider: 11/27/22 12:44 Source: patient and RN notes reviewed History of Present Illness HPI narrative: Patient is a 57-year-old female presents to urgent care with complaints of itchy red eyes and matting. Patient states that she also has an insect bite to the left shoulder. Both symptoms started over the weekend after camping. Patient has used pclh-yem-yrehamm allergy drops to the eyes as well as allergy pills. Denies any fevers. No other acute complaints. No acute distress noted. Patient aware of the plan of care. Some parts of this dictation were generated by voice recognition software and may contain typographical and/or grammatical inaccuracies. Related Data Allergies Allergy/AdvReac Type Severity Reaction Status Date / Time No Known Allergies Allergy Verified 07/21/21 14:25 Review of Systems Review of Systems: CONSTITUTIONAL: Denies fever, chills, or sweats. EYES: Reports of itchy red eyes with matting ENT: Denies rhinorrhea, congestion, sore throat, or otalgia. CARDIOVASCULAR: Denies chest pain, palpitations, or edema. RESPIRATORY: Denies cough or dyspnea. GASTROINTESTINAL: Denies abdominal pain, nausea, vomiting, or diarrhea. GENITOURINARY: Denies dysuria or hematuria. SKIN: Reports of an insect bite to the left shoulder MUSCULOSKELETAL: Denies back pain, joint pain, or myalgia. NEUROLOGIC: Denies headache, numbness, or weakness. All other systems reviewed are negative, except as documented in HPI. FORMERLY [facility] Past Medical History Medical History GERD (gastroesophageal reflux disease) Hyperlipidemia Surgical History Surgical History History of appendectomy Hx of cholecystectomy Hx of tubal ligation Family History Family History Mother Myocardial infarct at 55 y.o. Sibling Heart disease Social History Social History Smoking packs per day: 1 Smoking cigarettes per day: 20.0 Years smoked: 40 Smoking pack-years: 40.00 Smoking status: Current some day smoker Tobacco type: cigarettes Second hand tobacco smoke exposure: Yes Alcohol intake: current Drinks per week: 4 Substance use type: does not use Living arrangements: with family Gender identity (if verbalized by the patient): Female Spiritual care concerns: No Agree to blood products: Yes Comments At the time of my signature, I reviewed and agree with the nursing past medical, surgical, social, and family history. There is no relevant family history pertinent to the patient complaint. Exam Narrative: GENERAL: This is a well-nourished, well-developed patient, in no apparent distress. HEAD: normocephalic, atraumatic. EYES: PERRL. Bilateral injected conjunctiva with injected/erythema to bilateral sclera with clear discharge. Vision is grossly intact. EARS: External ears normal, auditory canals clear and without drainage, TMs normal without perforation. Hearing grossly intact. NOSE: External nose normal with no obvious nasal discharge, nares without redness, no rhinorrhea. THROAT: Mucous membranes moist, posterior pharynx clear. NECK: Neck supple, non-tender without lymphadenopathy, masses or thyromegaly. CARDIOVASCULAR: Regular rate and rhythm without murmurs, gallops, or rubs. RESPIRATORY: Clear to auscultation. Breath sounds equal bilaterally. No wheezes, rales, or rhonchi. SKIN: Insect bite with surrounding 4 x 7.5 cm raised/edematous to erythema to the left shoulder NEURO: awake, alert, and oriented to person, place and time. There were no obvious focal neurologic abnormalities. EXTREMITIES: No clubbing, cyanosis, or edema. Course Course
== END 2022-11-27 13:01 | disposition home or self-care (01) ==
PROVIDERS: Emergency Provider Nurse Practitioner Family; PCP Physician Assistant
DX: H10.9 Unspecified conjunctivitis (principal); S40.262A Insect bite (nonvenomous) of left shoulder, initial encounter; W57.XXXA Bitten or stung by nonvenomous insect and other nonvenomous arthropods, initial encounter; F17.210 Nicotine dependence, cigarettes, uncomplicated; K21.9 Gastro-esophageal reflux disease without esophagitis; E78.5 Hyperlipidemia, unspecified
CPT/HCPCS: 99213; G0463

== ENCOUNTER 2024-08-21 11:47 | Emergency (ER) | payer OTHER, SELFPAY ==
[2024-08-21 11:58] VITALS: BP 153/95; PULSE 90; RESP 20; TEMP 36.4; O2SAT 100
--- NOTE | 2024-08-21 12:51 | ED.FALL ---
HPI - Fall General Chief Complaint: Fall Stated Complaint: fell left side arm/right hand palm injury Source: patient Mode of arrival: ambulatory Limitations: no limitations History of Present Illness HPI Narrative: 59-year-old female presented for complaint of pain to right hand, left shoulder, left elbow following a fall today. She states she tripped over an electrical cord and landed on concrete. Patient also reports head pain to the left base of skull. Endorses feeling dizzy intermittently since she fell. Has not eaten. Has not taken anything for pain. Denies numbness, tingling, weakness or deformity of any joints. Related Data Allergies Allergy/AdvReac Type Severity Reaction Status Date / Time No Known Allergies Allergy Verified 08/21/24 12:18 Review of Systems Review of Systems: per HPI All systems reviewed & are unremarkable except as noted in HPI and below PMFSH Past Medical History Medical History GERD (gastroesophageal reflux disease) Hyperlipidemia Surgical History Surgical History History of appendectomy Hx of cholecystectomy Hx of tubal ligation Family History Family History Mother Myocardial infarct at 55 y.o. Sibling Heart disease Social History Social History Smoking packs per day: 1 Smoking cigarettes per day: 20.0 Years smoked: 40 Smoking pack-years: 40.00 Smoking status: Current some day smoker Tobacco type: cigarettes Second hand tobacco smoke exposure: Yes Alcohol intake: current Drinks per week: 4 Substance use type: does not use Living arrangements: with family Gender identity (if verbalized by the patient): Female Spiritual care concerns: No Agree to blood products: Yes Comments At time of signature, I have reviewed and agree with nursing past medical, surgical, social and family history unless otherwise noted. Please see nursing chart for further information. There is no relevant family history pertinent to the presenting complaint Exam Narrative: GENERAL: Well-appearing HEAD: Normocephalic, atraumatic. EYES: PERRLA, conjunctivae clear NECK: Supple. no vertebral point tenderness CHEST: Speaks in full sentences. No respiratory distress. HEART: Regular rate and rhythm. Normal and equal peripheral pulses. EXTREMITIES: ADDY has normal strength and sensation, slightly decreased range of motion at the left elbow due to pain with movement; cannot tolerate full extension. full range of motion to left shoulder, mild anterior shoulder tenderness with palpation is reported. No Swelling, or ecchymosis, No open wounds, skin tenting, or obvious deformity; Right hand without bruising swelling or deformity, CMS intact. pulse palpable and equal bilaterally, skin warm, dry, pink. Capillary refill less than 3 seconds. SKIN: Warm, dry NEURO: Alert and oriented x3. PSYCH: Normal mood and affect Course Course Emergency Course: Patient is aware of diagnosis, understands and agrees to treatment plan. Anticipatory guidance given. Patient agrees to follow-up as directed and is aware of reasons to seek care at the emergency department. Portions of this record may have been created with voice recognition software Level of Care: Express Care Visit Vital Signs Vital signs: Vital Signs Temperature 97.5 F L 08/21/24 11:58 Pulse Rate 90 08/21/24 11:58 Respiratory Rate 20 08/21/24 11:58 Blood Pressure 153/95 H 08/21/24 11:58 Pulse Oximetry 100 08/21/24 11:58 Oxygen Delivery Room Air 08/21/24 11:58 Temperature 97.5 F L 08/21/24 11:58 Pulse Rate 90 08/21/24 11:58 Respiratory Rate 20 08/21/24 11:58 Blood Pressure 153/95 H 08/21/24 11:58 Pulse Oximetry 100 08/21/24 11:58 Oxygen Delivery Room Air 08/21/24 11:58 Reviewed MDM - Fall MDM Narrative Medical decision making narrative: Discussed physical exam findings And x-rays. Patient currently denies headache, dizziness, neck pain.Says she ate some licorice and has been drinking water and feels better. Advised supportive measures and signs/symptoms to go to the ER. Pt is appropriate for outpt treatment and f/u. Differential Diagnosis Differential diagnosis: Likely concussion without loss of consciousness and other (osteoarthritis, elbow dislocation, septic bursitis, epicondylitis, biceps tendon rupture, tendonitis, fracture; sprain/strain of wrist, Colles' fracture, wrist fracture, hand fracture, finger sprain, dislocation of finger, gout, cellulitis, arthritis, tendonitis) Imaging Data Radiologist's impression: Patient: Lilly Dillard : 1965 MR#: [id number] Age: 59 Acct:[id number] Loc: ADM Date: 08/21/24Attending Dr: Ordering Physician: Mulu Bernal APRN Date of Service: 08/21/24 Procedure(s): XR hand RT 2V Accession Number(s): [id number] cc: Mulu Bernal APRN; Leticia, Nahum RIVERA~ EXAMINATION: XR hand RT 2V DATE: 08/21/2024 13:11 INDICATION: Right hand pain. Fall. TECHNIQUE: 3 views of right hand were obtained. COMPARISON: None. FINDINGS: Alignment is normal. No fracture. There is severe osteoarthritis of first carpometacarpal joint and mild osteoarthritis of some of the interphalangeal joints. IMPRESSION: 1. Polyarticular osteoarthritis. ----- Patient: Lilly Dillard : 1965 MR#: [id number] Age: 59 Acct:[id number] Loc: ADM Date: 08/21/24Attending Dr: Ordering Physician: Mulu Bernal APRN Date of Service: 08/21/24 Procedure(s): XR elbow LT min 3V Accession Number(s): [id number] cc: Mulu Bernal APRN; Leticia, Nahum RIVERA~ EXAMINATION: XR elbow LT min 3V DATE: 08/21/2024 13:10 INDICATION: Left elbow pain post fall TECHNIQUE: Anteroposterior, two oblique and lateral views of the left elbow were obtained. COMPARISON: None. FINDINGS: Alignment is normal. No fracture fracture. There is moderate osteoarthritis at the ulnotrochlear articulation with mild osteoarthritis at the proximal radioulnar and radiocapitellar articulations. Large loose osteochondral bodies in the anterior and posterior recess of the joint space which could be decreased range of motion with flexion and extension. No joint effusion. Soft tissues are unremarkable. IMPRESSION: 1. 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 2. No elbow joint effusion or acute osseous abnormality. -------- Patient: Lilly Dillard : 1965 MR#: [id number] Age: 59 Acct:[id number] Loc: [facility] ADM Date: 08/21/24Attending Dr: Ordering Physician: Mulu Bernal APRN Date of Service: 08/21/24 Procedure(s): XR shoulder LT min 2V Accession Number(s): [id number] cc: Mulu Bernal APRN; Leticia, Nahum RIVERA~ EXAMINATION: XR shoulder LT min 2V DATE: 08/21/2024 13:09 INDICATION: Left shoulder pain. Fall. TECHNIQUE: 4 views of left shoulder were obtained. COMPARISON: None. FINDINGS: Alignment is normal. No fracture. There is mild osteoarthritis of glenohumeral joint and severe osteoarthritis of acromioclavicular joint. IMPRESSION: 1. Polyarticular osteoarthritis. Discharge Plan Discharge Clinical Impression: Musculoskeletal pain Contusion of elbow, left Qualifiers: Encounter type: initial encounter Qualified Code(s): S50.02XA - Contusion of left elbow, initial encounter Patient Disposition: Home, Self-Care Condition: Stable Instructions: Antibiotic Form, Contusion in Adults (ED) Additional Instructions: Rest. Avoid pushing, pulling, lifting or anything that worsens the symptoms Tylenol 1000mg every 8 hours as needed; You can alternate with ibuprofen 800mg Cyclobenzaprine (Flexeril) is a muscle relaxer. Take it as directed. It can cause drowsiness so do not drive or operate machinery until you know how it makes you feel. Alternate ice/heat to the site. Lidocaine or salon pas pain patch or use pain cream like icy/hot or biofreeze. Follow up with your primary care provider as needed in 1 week Go to the ER for worsening symptoms or concerns Patient Language: Egyptian Prescriptions: New cyclobenzaprine 10 mg tablet 10 mg PO TID PRN (Reason: muscle spasm) Qty: 10 0RF ibuprofen 800 mg tablet 800 mg PO TID PRN (Reason: pain) Qty: 15 0RF No Action famotidine [Pepcid] 20 mg tablet 20 mg PO DAILY 90 Days Qty: 90 1RF atorvastatin 20 mg tablet 20 mg PO DAILY Qty: 30 0RF Follow-up/Referrals: Leticia,MARTHA Sheikh [Primary Care Provider] - Time of Disposition: 13:31
== END 2024-08-21 13:35 | disposition home or self-care (01) ==
PROVIDERS: Emergency Provider Nurse Practitioner Family; PCP Physician Assistant
DX: S50.02XA Contusion of left elbow, initial encounter (principal); M79.10 Myalgia, unspecified site; F17.210 Nicotine dependence, cigarettes, uncomplicated; W01.0XXA Fall on same level from slipping, tripping and stumbling without subsequent striking against object, initial encounter
CPT/HCPCS: 73030; 73080; 73120; 99214; G0463

== ENCOUNTER 2025-02-09 15:58 | Outpatient (CLI) | payer OTHER, SELFPAY ==
--- NOTE | ~2025-02-09 | XR_ITS ---
Bilateral Hands Technique: Bilateral PA, oblique, and lateral views were obtained. Clinical History: First CMC joint degenerative change Findings: No acute fracture or dislocation is seen. Osseous alignment is anatomic. There is advanced degenerative change of the bilateral first CMC joints. Soft tissues are unremarkable. 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 Reviewed, dictated and finalized at location . 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
--- OUTSIDE RECORDS SUMMARY | 2025-02-09 16:09 | XMS_ITS | Clinical Summary ---
Author Organization [facility] Medical Office Building [address] Address [address] [place] [address] Care Team Providers Care Wood Pole Treater Name Role Phone Nahum Kelly Primary Care Provider [phone] Allergies Active Allergy Reactions Criticality Noted Date Comments Pantoprazole Itching Low 09/14/2022 Medications Wixela Inhub 250-50 mcg/dose diskus inhaler INHALE 1 PUFF EVERY 12 HOURS 01/19/2021 Active albuterol HFA (PROVENTIL HFA,VENTOLIN HFA,PROAIR HFA) 90 mcg/actuation inhaler 12/12/2021 Active fluticasone propionate (FLONASE) 50 mcg/actuation nasal spray 07/12/2022 Active cyclobenzaprine (FLEXERIL) 5 mg tablet 01/17/2024 Active atorvastatin (LIPITOR) 40 mg tablet Take 1 tablet (40 mg total) by mouth daily for 90 days 01/21/2024 Active omeprazole (PriLOSEC) 40 mg capsule Take 1 capsule (40 mg total) by mouth daily 90 capsule 3 09/01/2024 Active Active Problems Problem Noted Date Diagnosed Date Anal warts 01/21/2024 Bacterial vaginosis 01/21/2024 Cervical intraepithelial neoplasia grade 1 01/20 Genital warts 01/21/2024 Infection of skin 01/21/2024 Low grade squamous intraepit helial lesion (LGSIL) on cervicovaginal cytologic smear 01/21/2024 Smoker 01/21/2024 Carpal tunnel syndrome of left wrist 10/30/2023 Numbness and tingling of hand 09/12/2023 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 Gastroesophageal reflux dise ase with esophagitis without hemorrhage 07/18/2018 Assessment & Plan (09/14/2018 9:54 PM CDT): Doing good on Zantac. Anxiety 07/18/2018 Chronic idiopathic constipation 07/18/2018 Assessment & Plan (09/14/2018 9:55 PM CDT): This is a functional issue and she is doing good on her own with occasional OTC medications. Epilepsy undetermined whether focal or generaliz ed 12/24/2015 Overview (09/29/2016): Epilepsy undetermined whether focal or generalized Chest pressure 11/19/2014 Lung nodule 11/19/2014 Near syncope 11/19/2014 Shortness of breath 11/19/2014 Wheezing 11/19/2014 Resolved Problems Problem Noted Date Diagnosed Date Resolved Date Erosive esophagitis 09/14/2022 09/15/19 Dyspepsia 03/07/2022 09/14/2022 Epigastric pain 03/07/2022 09/14/2022 RLQ abdominal pain 03/07/2022 Bowel habit changes 03/07/2022 09/15/19 Overview (03/07/2022): Added automatically from request for surgery [id number] Screen for colon cancer 07/14/2019 03/2 08/2022 Overview (07/14/2019): Added automatically from request for surgery [id number] History of colon polyps 07/14/2019 03/2 08/2022 Overview (07/14/2019): Added automatically from request for surgery [id number] Lesion of oral mucosa 06/13/20192022 Adenoma of colon 09/14/2018 09/14/2022 Assessment & Plan (09/14/2018 10:00 PM CDT): Adenoma polyp with focal high grade dysplasia on recent colonoscopy. Resection was complete. Will plan repeat colonoscopy in one year. Right lower quadrant abdominal pain 07/18/2018 09/14/2022 Assessment & Plan (09/14/2018 9:54 PM CDT): Patient has chronic functional abdominal pain which seems improving with Ativan at night and Neurontin 1-2 times daily. Will continue the same,. Encounters Date Type Department Care Team Description 01/29/2025 11:11 AM CDT - 01/29/2025 11:59 PM CDT Hospital Encounter [facility] [address] [place] [address] RUQ pain Discharge Disposition: Discharge to home or self care 01/27/2025 Telephone [facility] Gastroenterology at [address] [address] Ana Collins MA 01/21/2025 Telephone [facility] Gastroenterology at [address] [place] [address] Ana Collins MA 12/17/2024 Results Follow-Up [facility] Gastroenterology at [address] [place] [address] Yordan Ludwig NP Ferritin, Iron profile w/ IBC, CBC with auto differential, Differential, auto 12/12/2024 10:10 AM CDT Lab [address] Iron overload; Elevated hemoglobin; Hemochromatosis carrier from Last 3 Months Surgical History Surgery Date Site/Laterality Comments BREAST CYST ASPIRATION 06/25/2014 - 06/24/2015 Bilateral BREAST BIOPSY 06/25/2014 - 06/24/2015 Bilateral APPENDECTOMY CHOLECYSTECTOMY TUBAL LIGATION COLONOSCOPY 07/24/2018 BUNIONECTOMY 04/30/2020 Medical History Medical History Date Comments Breast cyst bilateral Smoking Chronic constipation GERD (gastroesophageal reflux disease) Hyperlipidemia Family History Medical History Relation Name Comments Colon cancer Father Heart attack Mother Myocardial infa rction; Stroke Mother Stroke; Arthritis Other Cancer Other Heart disease Other Relation Name Status Comments Father Mother Other Social History Tobacco Use Types Packs/Day Years Used Date Smoking Tobacco: Every Day Cigarettes 1 40 Smokeless Tobacco: Never Tobacco Cessation:Ready to Q uit: Not Asked; Counseling Given: Not Answered Alcohol Use Standard Drinks/Week Comments Yes 0 (1 standard drink = 0.6 oz pur e alcohol) social AUDIT-C Answer Date Recorded Q1: How often do you have a drink containing alc ohol? Monthly or less 09/01/2024 Q2: How many drinks containi ng alcohol do you have on a typical day when you are drinking? 1 or 2 09/01/2024 Q3: How often do you have si x or more drinks on one occasion? Never 09/01/2024 Personal Safety Answer Date Recorded Have you ever been in or are you currently in a harmful physical or emotional relationship or is someone making you feel afraid or unsafe? 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 Gender Identity Not on file Sexual Orientation Not on file Obstetrics History Para Term AB IAB SAB Ectopic Multiple Livin g Live Births 3 3 3 Date Outcome GA Total Labor Labor/2nd/3rd Weight Sex Type Anes PTL Christin A1 A5 Name Clin Term Term Term Last Filed Vital Signs Vital Sign Reading Time Taken Comments Blood Pressure 142/92 09/01/2024 2:53 PM CDT Pulse 79 09/01/2024 2:53 PM CDT Temperature 36.9 C (98.5 F) 04/27/2023 8:56 PM CDT Respiratory Rate 18 04/27/2023 8:56 PM CDT Oxygen Saturation 96% 09/01/2024 2:53 PM CDT Inhaled Oxygen Concentration - - Weight 68.8 kg (151 lb 9.6 oz) 09/01/2024 2:53 P M CDT Height 152.4 cm (5') 09/01/2024 2:53 PM CDT Body Mass Index 29.61 09/01/2024 2:53 PM CDT Plan of Treatment Health Maintenance Due Date Last Done Comments Cervical Cancer Screening 1965 Depression Screening 1965 Hepatitis C Screening 1965 DTaP/Tdap/Td Vaccine (1 - Tdap) 1974 Hepatitis B Screening 1981 Regular Well Visit/Exam 18-64 1981 Pneumococcal vaccine <65 (1 of 2 - PCV) 1982 Lung Cancer Screening 2013 Zoster Vaccine (1 of 2) 2013 Influenza Vaccine (#1) 2025 Breast Cancer Screening-Mammogram 01/26/2026 01/26/2025, 01/26/2025, 01/23/2024, Additional history exists Colon Cancer Screening-Colonoscopy 07/31/2032 07/31/2022, 08/13/2019, 07/24/2018 Colon Cancer Screening-CT Colonography Discontinued 07/31/2022, 08/13/2019, 07/24/2018 Colon Cancer Screening-DNA Stool Discontinued 07/31/2022, 08/13/2019, 07/24/2018 Colon Cancer Screening-Sigmoidoscopy Discontinued 07/31/2022, 08/13/2019, 07/24/2018 Colon Cancer Screening-FIT Discontinued 11/23, 07/31/2022, 08/13/2019, Additional history exists Procedures Procedure Name Priority Date/Time Associated Diagnosis Comments XR KUB Schedule Routine, Read Routine (OP Routine) 01/29/2025 11:15 AM CDT RUQ pain DIFFERENTIAL AUTO Routine 12/12/2024 10: 12 AM CDT Iron overload Elevated hemoglobin Hemochromatosis carrier CBC WITH AUTO DIFFERENTIAL Routine 12/12/2024 10:12 AM CDT Iron overload Elevated hemoglobin Hemochromatosis carrier IRON PROFILE W/ IBC Routine 12/12/2024 1 0:12 AM CDT Iron overload Elevated hemoglobin Hemochromatosis carrier FERRITIN Routine 12/12/2024 10:12 AM CDT Iron overload Elevated hemoglobin Hemochromatosis carrier SCREENING MAMMOGRAM BILATERAL W TAMMI Schedule Routine, Read Routine (OP Routine) 11/24/2022 11:18 AM CDT Screening mammogram, encounter for FIT OCCULT BLOOD, FECAL Routine 11/23/2022 8:05 AM CDT Chronic diarrhea COLONOSCOPY 07/31/2022 11:17 AM MARINE 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 COMPARISON: None FINDINGS: The small bowel is nondilated. Stomach is decompressed. Liver and spleen are nonenlarged. Post cholecystectomy changes. Stool burden is minimal. No abnormal calcifications. IMPRESSION: No acute abnormality No evidence of dilated small bowel or abundant colonic stool. Essentially normal bowel gas pattern and stool load. Post cholecystectomy change THIS IS AN ELECTRONICALLY VERIFIED FINAL REPORT 02/06/2025 8:00 PM - Electronically signed by Kin Hodges M.D. DA: RODOLFO Report ID: [id number] Reading Location: [place] [address] Procedure Note Kin Hodges MD - 02/06/2025 EXAM DESCRIPTION: XR KUB REASON FOR STUDY: assess fecal/gas load RUQ pain for 2 months Hx of gallbladder and appendix removed TECHNIQUE: Supine radiographic view of the abdomen. COMPARISON: None FINDINGS: The small bowel is nondilated. Stomach is decompressed. Liver and spleenare nonenlarged. Post cholecystectomy changes. Stool burden is minimal. No abnormal calcifications. IMPRESSION: No acute abnormality No evidence of dilated small bowel or abundantcolonic stool. Essentially normal bowel gas pattern and stool load. Post cholecystectomy change THIS IS AN ELECTRONICALLY VERIFIED FINAL REPORT 02/06/2025 8:00 PM - Electronically signed by Kin Hodges M.D. DA: RODOLFO Report ID: [id number] Reading Location: [place] [address] Malia THOMAS IMG XR PROCEDURES Final Result * (ABNORMAL) Differential, auto (12/12/2024 10:12 AM CDT) Neutrophil abs 6.21 1.50 - 6.50 K/cumm Imm gran abs 0.12(H) 0.00 - 0.10 K/cumm [facility] ([place]) Lymphocyte abs 2.43 0.80 - 3.30 K/cumm [facility] ([place]) Monocyte abs 0.70 0.20 - 0.80 K/cumm [facility] ([place]) Eosinophil abs 0.07 0.00 - 0.50 K/cumm [facility] ([place]) Basophil abs 0.06 0.00 - 0.10 K/cumm [facility] ([place]) Neutrophil pct 64.8 % [facility] ([place]) Comment: Interpretive Data Percent cell count reference ranges are not reported, since discordance with absolute values may lead to misinterpretation of CBC data. Current Interpretive Data was last revised on 2017. Imm gran pct 1.3 % [facility] ([place]) Comment: Interpretive Data Percent cell count reference ranges are not reported, since discordance with absolute values may lead to misinterpretation of CBC data. Current Interpretive Data was last revised on 2017. Lymphocyte pct 25.3 % [facility] ([place]) Comment: Interpretive Data Percent cell count reference ranges are not reported, since discordance with absolute values may lead to misinterpretation of CBC data. Current Interpretive Data was last revised on 2017. Monocyte pct 7.3 % [facility] ([place]) Comment: Interpretive Data Percent cell count reference ranges are not reported, since discordance with absolute values may lead to misinterpretation of CBC data. Current Interpretive Data was last revised on 2017. Eosinophil pct 0.7 % [facility] ([place] Comment: Interpretive Data Percent cell count reference ranges are not reported, since discordance with absolute values may lead to misinterpretation of CBC data. Current Interpretive Data was last revised on 2017. Basophil pct 0.6 % [facility] ([place]) Comment: Interpretive Data Percent cell count reference ranges are not reported, since discordance with absolute values may lead to misinterpretation of CBC data. Current Interpretive Data was last revised on 2017. Blood 12/12/2024 10:1 2 AM CDT 12/12/2024 2:12 PM CDT [facility] [place] [place] [facility] B[facility] ORDERABLE S Final Result Performing Organization Address [facility]/ZIP Co de Phone Number [facility] ([place]) 1 [facility] [place] [address] * Iron profile w/ IBC (12/12/2024 10:12 AM CDT) Iron 113 35 - 145 mcg/dL TIBC 307 250 - 400 mcg/dL [facility] ([place]) Transferrin saturation 37 20 - 50 % [facility]) Blood 12/12/2024 10:1 2 AM CDT 12/12/2024 2:12 PM CDT [facility] LAB BLOOD ORDERABLE S Final Result Performing Organization Address City/[facility]/ZIP Co de Phone Number [facility] ([place]) 1 [facility] [place] [place] [address] * (ABNORMAL) CBC with auto differential (12/12/2024 10:12 AM CDT) WBC 9.59 3.80 - 9.90 K/cumm Hgb 17.6(H) 11.9 - 15.5 g/dL [facility] ([place]) Hct 51.8(H) 35.6 - 45.5 % [facility] ([place]) Plt 249 150 - 400 K/cumm [facility] ([place]) MPV 11.0 9.1 - 12.3 fL [facility] ([place]) RBC 5.44(H) 3.90 - 5.20 M/cumm [facility] ([place]) MCV 95.2 81.3 - 96.4 fL [facility] ([place]) MCH 32.4 27.1 - 33.3 pg [facility] ([place]) MCHC 34.0 32.3 - 35.7 g/dL [facility] ([place]) RDW CV 13.6 11.1 - 14.9 % [facility]) RDW SD 47.5 35.7 - 48.1 fL [facility]) NRBC abs 0.00 0.00 - 0.01 K/cumm [facility] ([place]) Blood 12/12/2024 10:1 2 AM CDT 12/12/2024 2:12 PM CDT [facility] ETL BI DEVELOPER LAB BLOOD ORDERABLE S Final Result Performing Organization Address City/[facility]/ZIP Co de Phone Number [facility] ([place]) 1 [facility] [place] [address] * (ABNORMAL) Ferritin (12/12/2024 10:12 AM CDT) Pathologist [facility] Ferritin 339(H) 13 - 150 ng/mL Blood 12/12/2024 10:1 2 AM CDT 12/12/2024 2:12 PM CDT [facility] ETL BI DEVELOPER LAB BLOOD ORDERABLE S Final Result [facility] ([place]) 1 [facility] [place] [address] * FIT occult blood, fecal (11/23/2022 8:05 AM CDT) FIT occult blood, fecal Negative Negative [facility] ([place]) Comment: Negative result. This test will not detect upper gastrointestinal bleeding; the HemoQuant test ([id number])should be ordered if clinically indicated. Test Performed by: [address] [address] Addiction Therapist: Steve Gamino M.D. Ph.D.; CLIA# [id number] Collection date/time has been modified to: 08:05:00. Previous collection date/time: 08:05:00. 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 Room: [facility] ENDOSCOPY ROOM 1 Note Status: Finalized Patient Profile: This is a 57 year old female. Her father had colon cancer. History of large adenoma polyp withdysplasia in the rectum. She is a smoker. Procedure: Colonoscopy Indications: Screening in patient at increased risk: Familyhistory of 1st-degree relative with colorectal cancer, High risk colon cancer surveillance: Personal history of colonic polyps, Last colonoscopy: June 2018 Referring MD: MARTHA Charles Providers: Vasquez Dixon M.D. Impression: - One 5 mm polyp in the rectum, removed with ajumbo cold forceps. Resected and retrieved. - Granularity at the internal anal meatus anddentate line. Biopsied. - Internal hemorrhoids. Recommendation: - Await pathology results. - Repeat colonoscopy in 3 - 5 years forsurveillance. Medicines: Monitored Anesthesia Care Complications: No immediate complications. Estimated Blood Loss: Estimated blood loss: none. Procedure: Pre-Anesthesia Assessment: - Prior to the procedure, a History and Physicalwas performed, and patient medications and allergieswere reviewed. The patient's tolerance of previous anesthesia was also reviewed. The risks andbenefits of the procedure and the sedation options and risks were discussed with the patient. All questions were answered, and informed consent was obtained. Prior Anticoagulants: The patient has taken noanticoagulant or antiplatelet agents. ASA Grade Assessment: II -A patient with mild systemic disease. After reviewing the risks and benefits, the patient was deemed in satisfactory condition to undergo the procedure. The benefits, risks and alternatives of theprocedure and sedation were discussed and informed consentwas obtained. All questions were answered. Please referto the signed informed consent document in the medical record. The bowel preparation used was Miralax and bisacodyl tablets via split dose instruction. The scope was passed under direct vision. The Pediatric Colonoscope PCF-H190L [id number] was introducedthrough the anus and advanced to the the cecum, identifiedby appendiceal orifice and ileocecal valve. Thequality of the bowel preparation was good. Bowel prep was administered using a split dose. Findings: The perianal and digital rectal examinations were normal. The cecum appeared normal. The sigmoid colon, descending colon, transverse colon and ascending colon appeared normal. A 5 mm polyp was found in the rectum. The polyp was sessile. Thepolyp was removed with a jumbo cold forceps. Resection and retrieval were complete. A localized area of granular mucosa was found at the dentate lineclose to the hemorrhoids at the internal anal meatus.. Biopsies were taken with a cold forceps for histology. Internal hemorrhoids were found during retroflexion. The hemorrhoids were small. Electronically signed by Vasquez Dixon M.D. Vasquez Dixon M.D. 07/31/2022 12:51:07 PM Number of Addenda: 0 Note Initiated On: 07/31/2022 11:17 AM Procedure Code(s): --- Professional --- 61302, Colonoscopy, flexible; with biopsy, single or multiple Diagnosis Code(s): --- Professional --- Z80.0, Family history of malignant neoplasm of digestive organs Z86.010, Personal history of colonic polyps K64.8, Other hemorrhoids D12.8, Benign neoplasm of rectum K62.89, Other specified diseases of anus and rectum CPT copyright 2020 [employer]. All rights reserved. The codes documented in this report are preliminary and upon medical biller coder reviewmay be revised to meet current compliance requirements. Recognized by the [place] [employer] for promoting quality in endoscopy Vasquez Dixon MD ENDOSCOPY PROCEDURES Final Result from Last 3 Months or Most Recently Relevant to Health Maintenance Insurance [facility] Advance Directives For more information, please contact: [phone] * Full Code (Latest Code Status on File) Date Activated Date Inactivated Comments 07/31/2022 11:10 AM 07/31/2022 6:00 PM * Full Code Date Activated Date Inactivated Comments 07/31/2022 11:10 AM 07/31/2022 11:10 AM * Full Code Date Activated Date Inactivated Comments 08/13/2019 10:26 AM 08/13/2019 5:59 PM * Full Code Date Activated Date Inactivated Comments 08/13/2019 10:25 AM 08/13/2019 10:26 AM * Full Code Date Activated Date Inactivated Comments 07/24/2018 11:07 AM 07/24/2018 5:30 PM Care Teams Wood Pole Treater Relationship Specialty Start Date End Date Nahum Kelly PA [address] [place] [address] PCP - General 07/08/18
--- OUTSIDE RECORDS SUMMARY | 2025-02-09 16:09 | XMS_ITS | Encounter Summary ---
Author Organization [facility] Healthcare Address [address] [place] [address] Care Team Providers Care Layout Technician Name Role Phone Nahum Kelly Primary Care Provider [phone] Encounter Details Date Type Department Care Team (Latest Contact Info) Description 12/17/2024 Results Follow-Up [facility] Gastroenterology at [address] [place] [address] Yordan Ludwig NP 4 [facility] [address] [place] [address] Ferritin, Iron profile w/ IBC, CBC with auto differential, Differential, auto Social History Tobacco Use Types Packs/Day Years Used Date Smoking Tobacco: Every Day Cigarettes 1 40 Smokeless Tobacco: Never Alcohol Use Standard Drinks/Week Comments Yes 0 [...] on file 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 This will help get your ferritin and hemoglobin levels down and prevent iron build up in the liver while also doing some good. I would recommend you do it at least every 3 months to help both you and someone else. Let me know if this is not an option for you! Schedule a Blood, Platelet or Plasma Donation [place] Sorrel Sincerely, INDER Rojas documented in this encounter Plan of Treatment Not on file documented as of this encounter Visit Diagnoses Not on filedocumented in this encounter Care Teams Layout Technician Relationship Specialty Start Date End Date Nahum Kelly PA [address] [place] [address] PCP - General 07/08/18 documented as of this encounter
== END 2025-02-09 15:59 | disposition home or self-care (01) ==
PROVIDERS: PCP Physician Assistant; Visit Provider Physician Assistant Surgical
DX: M18.0 Bilateral primary osteoarthritis of first carpometacarpal joints (principal)
CPT/HCPCS: 73130